=== PATIENT | male | born 1965 | race Caucasian/White ===

== ENCOUNTER 2017-04-27 18:31 | Emergency (ER) | payer OTHER, MEDICAID ==
[2017-04-27] MEDS: NITROGLYCERIN (SL) 0.4 MG TAB SL (21:23)
[2017-04-27] MEDS: ASPIRIN 325 MG TAB PO (21:23)
[2017-04-27 21:31] LABS: ADD MAN DIFF? NO
[2017-04-27 21:35] LABS: BASOPHIL # 0.1 10^3/ul (0.0-0.1); BASOPHILS % 0.8 % (0.0-2.0); EOSINOPHILS # 0.3 10^3/ul (0.0-0.5); EOSINOPHILS % 2.4 % (0.0-7.0); HEMOGLOBIN 15.5 g/dl (14.0-18.0); LYMPHOCYTES # 3.1 10^3/ul (0.8-2.9); LYMPHOCYTES % 26.6 % (15.0-51.0); MEAN CORPUSCULAR HEMOGLOBIN 30.2 pg (29.0-33.0); MEAN CORPUSCULAR HGB CONC 34.4 g/dl (32.0-37.0); MEAN CORPUSCULAR VOLUME 87.5 fl (82.0-101.0); MONOCYTE # 0.7 10^3/ul (0.3-0.9); NEUTROPHIL # 7.3 10^3/ul (1.6-7.5); NEUTROPHILS % 63.9 % (39.0-77.0); PLATELET COUNT 294 10^3/UL (140-415); RED BLOOD COUNT 5.14 10^6/ul (4.70-6.10); RED CELL DISTRIBUTION WIDTH 12.7 % (11.5-14.5)
[2017-04-27 21:35] LABS: WHITE BLOOD COUNT 11.5 10^3/ul (4.8-10.8)
[2017-04-27 21:58] LABS: ALANINE AMINOTRANSFERASE 34 IU/L (13-69); ALBUMIN 4.3 g/dl (3.3-4.9); ALBUMIN/GLOBULIN RATIO 1.53; ALKALINE PHOSPHATASE 100 IU/L (42-121); ANION GAP 14 (8-16); ASPARTATE AMINO TRANSFERASE 19 IU/L (15-46); BLOOD UREA NITROGEN 21 mg/dl (7-20); CALCIUM 9.5 mg/dl (8.4-10.2); CARBON DIOXIDE 31 mmol/L (21-31); CHLORIDE 103 mmol/L (97-110); CREATININE 1.04 mg/dl (0.61-1.24); GLUCOSE 136 mg/dl (70-220); POTASSIUM 3.9 mmol/L (3.5-5.1); SODIUM 144 mmol/L (135-144); TOTAL PROTEIN 7.1 g/dl (6.1-8.1)
[2017-04-27 22:12] LABS: TROPONIN-I < 0.012 ng/ml (0.00-0.12)
[2017-04-28] MEDS: NICARDipine HCL 30 MG CAPSULE PO (00:35)
[2017-04-28 01:11] LABS: TROPONIN-I 0.025 ng/ml (0.00-0.12)
== END 2017-04-28 08:13 | disposition home or self-care (01) ==
LOC: E/R 04-28 08:13
DX: K22.4 Dyskinesia of esophagus (principal)
CPT/HCPCS: 36415; 71045; 80053; 84484; 85025; 93005; 99285-25

== ENCOUNTER 2018-10-17 12:26 | Emergency (ER) | payer SELFPAY, MEDICAID | END 2018-10-17 13:04 | disposition home or self-care (01) | LOC: E/R 12:26 | DX: I10 Essential (primary) hypertension (principal); F17.210 Nicotine dependence, cigarettes, uncomplicated | CPT/HCPCS: 99281 ==